=== PATIENT | female | born 1985 ===

== ENCOUNTER 2017-04-28 08:09 | Emergency (ER) | payer OTHER, SELFPAY ==
[2017-04-28 08:35] VITALS: BP 118/73; PULSE 82; RESP 18; O2SAT 100
--- NOTE | 2017-04-28 09:18 | ED PDOC ---
HPI: General Adult Time Seen by Provider: 04/28/17 08:37 Chief Complaint (Nursing): Flu-like Symptoms Chief Complaint (Provider): Left Ear Pain History Per: Patient History/Exam Limitations: no limitations Onset/Duration Of Symptoms: Hrs (x12) Current Symptoms Are (Timing): Still Present Additional Complaint(s): Yelitza Emanuel is a 31 year old female that presents to the ED with a chief complaint of left ear pain and congestion in her left ear that she has been experiencing for the past 12 hours. Patient additionally complaints of dry cough , sneezing, and nasal congestion that she has been experiencing for the past 3 days. She denies any fever, headaches, chest pain, discharge or bleeding from left ear, or shortness of breath, and has not yet taken any medication for her symptoms. Past Medical History Reviewed: Historical Data, Nursing Documentation, Vital Signs Vital Signs: Last Vital Signs Temp 97.9 F 04/28/17 08:30 Pulse 82 04/28/17 08:30 Resp 18 04/28/17 08:30 BP 118/73 04/28/17 08:30 Pulse Ox 100 04/28/17 08:30 - Medical History PMH: No Chronic Diseases - Surgical History Surgical History: No Surg Hx - Family History Family History: States: No Known Family Hx - Home Medications Home Medications: Ambulatory Orders Medication Instructions Recorded Amoxicillin 875 mg PO BID #20 tablet 04/28/17 - Allergies Allergies/Adverse Reactions: Allergies Allergy/AdvReac Type Severity Reaction Status Date / Time No Known Allergies Allergy Verified 04/28/17 09:08 Review of Systems ROS Statement: Except As Marked, All Systems Reviewed And Found Negative Constitutional: Negative for: Fever ENT: Positive for: Ear Pain (left ear pain). Negative for: Ear Discharge Cardiovascular: Negative for: Chest Pain Respiratory: Negative for: Shortness of Breath Neurological: Negative for: Headache Physical Exam - Reviewed Nursing Documentation Reviewed: Yes Vital Signs Reviewed: Yes - Physical Exam Appears: Positive for: Non-toxic, No Acute Distress Head Exam: Positive for: ATRAUMATIC, NORMOCEPHALIC Skin: Positive for: Normal Color, Warm Eye Exam: Positive for: Normal appearance, EOMI, PERRL ENT: Positive for: Pharynx Is (normal), TM Is/Are (Left TM is erythematous and bulging), Nasal Congestion. Negative for: Pharyngeal Erythema, Other (No external ear tenderness, no mastoid tenderness) Neck: Positive for: Normal, Supple Neurologic/Psych: Positive for: Alert, Oriented. Negative for: Motor/Sensory Deficits - ECG O2 Sat by Pulse Oximetry: 100 (RA) Pulse Ox Interpretation: Normal Medical Decision Making Medical Decision Making: Impression: Acute Otitis Media of Left Ear, URI Plan: * Patient will be given Rx for Amoxicillin and and instructed to take OTC medication for cold symptoms. Patient is stable for discharge home. Scribe Attestation: Documented by Cindy Matute, acting as a scribe for Artemio Silva MD. Provider Scribe Attestation: All medical record entries made by the Scribe were at my direction and personally dictated by me. I have reviewed the chart and agree that the record accurately reflects my personal performance of the history, physical exam, medical decision making, and the department course for this patient. I have also personally directed, reviewed, and agree with the discharge instructions and disposition. Disposition - Clinical Impression Clinical Impression: Otitis media, left, URI (upper respiratory infection) - Disposition Referrals: [facility] [Outside] Disposition: Routine/Home Disposition Time: 08:57 Condition: GOOD Additional Instructions: Take motrin for pain or fevers. Take your antibiotics for 10 days. Follow up with your PCP in 3-5 days. Prescriptions: Amoxicillin 875 mg PO BID #20 tablet Instructions: Ear Infections (Otitis Media) (DC), Viral Upper Respiratory Infection, Adult (DC) Print Language: MONGOLIAN
[2017-04-28 09:24] VITALS: TEMP 98
== END 2017-04-28 09:27 | disposition home or self-care (01) ==
LOC: H.ER 08:09
DX: H66.92 Otitis media, unspecified, left ear (principal); J06.9 Acute upper respiratory infection, unspecified